=== PATIENT | female | born 1980 | race Caucasian/White ===

== ENCOUNTER 2017-04-03 12:23 | Emergency (ER) | payer OTHER ==
--- NOTE | ~2017-04-03 | CR181 ---
[facility] A Service of [facility] & [facility] RADIOLOGY TEXT RESULTS PATIENT: ANNEL FRANCISCO LOCATION: SED : 80 UNIT #: [id number] AGE: [address]: Fred Lopez DO SEX: F ORDER DR: [id number] [address] [address] [id number] E MR#: [id number] #: [id number] NAME: ANNEL FRANCISCO : 1980 SEX: F STUDY DATE/TIME: 04/03/2017 14:09 UNIT: SED ROOM: STUDY DESCRIPTION: CR Lumbar Spine 2 or 3 Views Attending Physician: Fred Lopez Ordering Physician: Fred Lopez Primary Care Physician: Primary Care Physician No MEDICAL IMAGING REPORT This report is preliminary unless electronic signature is present. EXAM Lumbar spine 3 views INDICATION Low back pain after falling last night. No comparisons. FINDINGS There is levoscoliosis. There is degenerative disc space narrowing at L4-5 and L5-S1. Lower lumbar spine facet arthropathy. IMPRESSION Degenerative changes as described. No acute finding. Dictated by... Bj Tejada M.D. THIS IS AN ELECTRONICALLY VERIFIED REPORT Bj Tejada M.D. at 04/04/2017 2:22 PM PIPE/aleaxndra TD: 04/04/2017 04:35 JOB #: [id number] MEDICAL IMAGING REPORT Page 1 of 1
--- NOTE | ~2017-04-03 | CR169 ---
[facility] A Service of [facility] & [facility] RADIOLOGY TEXT RESULTS PATIENT: ANNEL FRANCISCO LOCATION: SED : [birth year] UNIT #: [id number] AGE: [address]: Fred Lopez DO SEX: F ORDER DR: [id number] [address] [address] [id number] E MR#: [id number] Acc #: [id number] NAME: ANNEL FRANCISCO : 1980 SEX: F STUDY DATE/TIME: 04/03/2017 14:09 UNIT: SED ROOM: STUDY DESCRIPTION: CR Knee 2 Views Lt Attending Physician: Fred Lopez Ordering Physician: Fred Lopez Primary Care Physician: Primary Care Physician No MEDICAL IMAGING REPORT This report is preliminary unless electronic signature is present. EXAM Left knee 2 views INDICATION Knee pain after falling last night. No comparisons. FINDINGS There is no fracture or dislocation. No joint effusion. IMPRESSION Negative. Dictated by... Bj Tejada M.D. THIS IS AN ELECTRONICALLY VERIFIED REPORT Bj Tejada M.D. at 04/04/2017 2:22 PM PIPE/alexandra TD: 04/04/2017 04:36 JOB #: [id number] MEDICAL IMAGING REPORT Page 1 of 1
[~2017-04-03 12:23] MED LIST: AMOXICILLIN250 MG PO; BACTRIM DS TABL1 TA2 PO; CENTRUM PO; ELIMITE60 GM TOP; ERYC250 MG PO; FLONASE16 GM; PERCOCET5/325 PO; PHENERGAN25 MG PO; VOLTAREN75 MG PO; ZYRTEC PO
[2017-04-03 13:58] LABS: URINE SOURCE CLEAN CATCH
[2017-04-03 14:00] LABS: URINE APPEARANCE CLEAR; URINE BILIRUBIN NEG (NEG); URINE BLOOD NEG (NEG); URINE COLOR YELLOW; URINE GLUCOSE NEG (NORM); URINE KETONE NEG (NEG); URINE LEUKOCYTE ESTERASE NEG (NEG); URINE NITRATE NEG (NEG); URINE PH 7.5 (5-8); URINE PROTEIN NEG (NEG); URINE UROBILINOGEN 0.2 MG/DL (NORM)
[2017-04-03 14:01] LABS: MICRO INDICATED? NO
== END 2017-04-03 16:10 | disposition home or self-care (01) ==
LOC: SED 12:23
PROVIDERS: Emergency Medicine
DX: S33.5XXA Sprain of ligaments of lumbar spine, initial encounter (principal); S86.912A Strain of unspecified muscle(s) and tendon(s) at lower leg level, left leg, initial encounter; Z88.8 Allergy status to other drugs, medicaments and biological substances; W01.0XXA Fall on same level from slipping, tripping and stumbling without subsequent striking against object, initial encounter; Y92.9 Unspecified place or not applicable
CPT/HCPCS: 29530; 72100; 73560; 81003; 84703; 99284

== ENCOUNTER 2017-04-25 16:12 | Emergency (ER) | payer OTHER ==
--- NOTE | ~2017-04-25 | CR72 ---
[facility] A [facility] RADIOLOGY TEXT RESULTS PATIENT: ANNEL FRANCISCO LOCATION: SED : [birth year] UNIT #: [id number] AGE: [address]: Kandi Abdi MD SEX: F ORDER DR: [id number] [place] [id number] E MR#: [id number] Acc #: [id number] NAME: ANNEL FRANCISCO : 1980 SEX: F STUDY DATE/TIME: 04/25/2017 17:26 UNIT: SED ROOM: STUDY DESCRIPTION: CR Chest Single View Portable Attending Physician: Kandi Abdi M.D. Ordering Physician: Kandi Abdi M.D. MEDICAL IMAGING REPORT This report is preliminary unless electronic signature is present. EXAM Portable chest x-ray HISTORY Chest pain. Cough. Right arm numb, started this a.m. TECHNIQUE AP radiograph of the chest is presented. COMPARISON STUDIES None. FINDINGS Poor quality study. Clothing artifacts overlie relevant anatomy. Thoracic scoliosis convex to left upper thoracic spine and to right mid- to lower thoracic spine. No acute appearing bony abnormality. Heart upper limits of normal in size. Overall mediastinal contour is normal. The lungs are well-inflated without evidence of acute pulmonary disease, pleural effusion or pneumothorax. No suspicious nodule. Dictated by... Partha Beltrán M.D. THIS IS AN ELECTRONICALLY VERIFIED REPORT Partha Beltrán M.D. at 04/28/2017 8:26 AM DOREEN/jayson TD: 04/25/2017 22:24 JOB #: [id number] [facility] A [facility] RADIOLOGY TEXT RESULTS PATIENT: ANNEL FRANCISCO LOCATION: SED : [birth year] UNIT #: [id number] AGE: [address]: Kandi Abdi MD SEX: F ORDER DR: MEDICAL IMAGING REPORT Page 1 of 1
--- NOTE | ~2017-04-25 | EKG ---
PATIENT: IRVING FRANCISCOTH UNIT #: [id number] Ventricular Rate: 99 BPM Atrial Rate: 99 BPM P-R Interval: 158 ms QRS Duration: 92 ms Q-T Interval: 372 ms QTC Calculation(Bezet): 477 ms P [place]: 40 degrees Calculated R [place]: 31 degrees Calculated T [place]: 34 degrees Diagnosis Line: Normal sinus rhythm Diagnosis Line: Cannot rule out Anterior infarct , age Diagnosis Line: undetermined Diagnosis Line: Abnormal ECG Diagnosis Line: No previous ECGs available Diagnosis Line: Confirmed by ANDREW RUBIO MD ([id number]) on Diagnosis Line: 04/27/2017 10:51:26 AM INTERPRETING MD: JOANNE PLEITEZ
[2017-04-25 17:06] LABS: URINE SOURCE CLEAN CATCH
[2017-04-25 17:09] LABS: BASOPHIL# 0.1 X10e3 (0-0.3); BASOPHIL% 0.5 % (0-2.5); DIFF IND NO; EOSINOPHIL# 0.1 X10e3 (0-0.7); EOSINOPHIL% 0.5 % (0.0-7.0); HEMOGLOBIN 12.2 gm/dL (12.0-16.0); LYMPHOCYTE# 2.2 X10e3 (1.0-3.5); LYMPHOCYTE% 18.1 % (17.0-45.0); MEAN CELL VOLUME 98.4 FL (83-96); MEAN CORPUSCULAR HEMOGLOBIN 32.4 PG (28-34); MEAN CORPUSCULAR HGB CONC 32.9 g/dL (30-36); MONOCYTE# 0.5 X10e3 (0-1.0); MONOCYTE% 3.9 % (3.0-12.0); NEUTROPHIL# 9.2 X10e3 (1.5-7.1); PLATELET COUNT 255 X10e3 (140-420); RED BLOOD COUNT 3.76 X10e (3.90-5.30); RED CELL DISTRIBUTION WIDTH 12.8 % (11.0-15.5); WHITE BLOOD COUNT 11.9 X10e3 (4.0-10.5)
[2017-04-25 17:14] LABS: POC - CKMB <1.0 ng/mL (0.0-7.9); POC - TROPONIN <0.05 ng/mL (<=0.05)
[2017-04-25 17:15] LABS: URINE APPEARANCE CLEAR; URINE BILIRUBIN NEG (NEG); URINE BLOOD NEG (NEG); URINE COLOR YELLOW; URINE GLUCOSE NEG (NORM); URINE KETONE NEG (NEG); URINE LEUKOCYTE ESTERASE NEG (NEG); URINE NITRATE NEG (NEG); URINE PH 5.5 (5-8); URINE PROTEIN NEG (NEG); URINE SPECIFIC GRAVITY 1.025 (1.003-1.035); URINE UROBILINOGEN 0.2 MG/DL (NORM)
[2017-04-25 17:17] LABS: MICRO INDICATED? NO
[2017-04-25 17:24] LABS: INR 1.1; PROTHROMBIN TIME (PATIENT) 12.9 SECONDS (9.5-12.4)
[2017-04-25 17:25] LABS: AMPHETAMINE NEG (NEG); BARBITURATES NEG (NEG); BENZODIAZEPINES NEG (NEG); COCAINE NEG (NEG); MARIJUANA POS (NEG); OPIATES NEG (NEG); TRICYCLIC ANTIDEPRESSANTS NEG (NEG); U METHADONE NEG (NEG)
[2017-04-25 17:32] LABS: ALBUMIN SERUM 3.8 g/dL (3.5-5.0); ALKALINE PHOSPHATASE 54 U/L (32-92); ALT (SGPT) 17 U/L (10-40); AST (SGOT) 24 U/L (10-42); BILIRUBIN,TOTAL 0.4 mg/dL (0.2-2.0); BLOOD UREA NITROGEN 12 mg/dL (9-23); CALCIUM SERUM 8.3 mg/dL (8.4-10.2); CARBON DIOXIDE 24 mmol/L (22-31); CHLORIDE 104 mmol/L (100-111); CREATININE SERUM 0.6 mg/dL (0.6-1.4); GLOM FILT RATE Estimated 117.3 mL/min (>60); GLUCOSE FASTING 203 mg/dL (70-110); MAGNESIUM 1.7 mg/dL (1.6-3.0); PARTIAL THROMBOPLASTIN TIME 26.1 SECONDS (25.6-38.1); POTASSIUM 3.2 mmol/L (3.5-5.1); PROTEIN TOTAL SERUM 7.5 g/dL (6.0-8.3); SODIUM 136 mmol/L (135-145)
[2017-04-25 17:34] LABS: BILIRUBIN, DIRECT <0.1 mg/dL (0.0-0.2); BILIRUBIN,INDIRECT 0.3 mg/dL (0.0-0.9)
[2017-04-25 19:23] LABS: POC - CKMB <1.0 ng/mL (0.0-7.9)
[2017-04-25 19:24] LABS: POC - TROPONIN <0.05 ng/mL (<=0.05)
== END 2017-04-25 19:53 | disposition home or self-care (01) ==
LOC: SED 16:12
PROVIDERS: Student in an Organized Health Care Education/Training Program
DX: R07.9 Chest pain, unspecified (principal); R05 Cough; K21.9 Gastro-esophageal reflux disease without esophagitis; F17.200 Nicotine dependence, unspecified, uncomplicated; Z91.013 Allergy to seafood
CPT/HCPCS: 36415; 71010; 80048; 80076; 80307; 81003; 82553; 83735; 83880; 84484; 84703; 85025; 85379; 85610; 85730; 93005; 99284

== ENCOUNTER 2017-06-11 15:58 | Emergency (ER) | payer OTHER ==
[~2017-06-11] VITALS: Ht 167.6 cm; Wt 113.4 kg
== END 2017-06-11 17:31 | disposition home or self-care (01) ==
LOC: CFTX 15:58 → CED 15:58 → CFTX 17:26
DX: S83.90XA Sprain of unspecified site of unspecified knee, initial encounter (principal); X58.XXXA Exposure to other specified factors, initial encounter; Y92.89 Other specified places as the place of occurrence of the external cause
CPT/HCPCS: 29505; 99283